=== PATIENT | female | born 1945 | race Caucasian/White ===

== ENCOUNTER → 2016-09-08 | Outpatient (CLI) | payer OTHER, MEDICARE | LOC: BMCIMAGING 10:38 | PROVIDERS: ATTEND Internal Medicine | DX: M85.80 Other specified disorders of bone density and structure, unspecified site (principal) ==

== ENCOUNTER → 2017-04-25 | Outpatient (CLI) | payer OTHER, MEDICARE | LOC: FIMAGING 11:42 | PROVIDERS: ATTEND Internal Medicine | DX: Z12.31 Encounter for screening mammogram for malignant neoplasm of breast (principal) | CPT/HCPCS: G0202 ==

== ENCOUNTER → 2018-05-22 | Outpatient (CLI) | payer OTHER, MEDICARE | LOC: FIMAGING 18:45 | PROVIDERS: ATTEND Registered Nurse | DX: R42 Dizziness and giddiness (principal); R53.1 Weakness ==

== ENCOUNTER 2018-05-23 10:11 | Observation (INO) | payer OTHER, MEDICARE ==
--- NOTE | 2018-05-23 10:35 | EDPHY ---
H & P Stated Complaint: fall/r arm weakness/had mri yesterday Time Seen by Provider: 05/23/18 10:26 HPI/ROS: CHIEF COMPLAINT: CVA HISTORY OF PRESENT ILLNESS: The patient is a 72-year-old female who had a CVA on Monday night 5 days ago. She states that she was cleaning the table when suddenly she had weakness in her right hand dropped the glass. She also felt vertiginous. Her helped her to bed. She fell out of the bed once and he was able to get back in and put on her pajamas. Her is a manufacturing executive and they thought that she was having a vestibular problem. No fever. Her symptoms were better by Monday morning but states that she felt slightly off. Her symptoms had resolved by Monday. On Monday she saw her primary care nurse practitioner who suspected a TIA and ordered an MRI. The MRI happened yesterday. This revealed a focal ischemic stroke in the left temporoparietal region. The patient is currently asymptomatic. Her primary Dr. Jones called her today and recommended she come to the ER for further workup and possibly admission. She has been taking aspirin daily since the event. She denies history of cardiac disease. No chest pain or shortness of breath. No slurred speech or facial symptoms. No leg symptoms during the event. Severity: Severe Modifying factors: Resolved REVIEW OF SYSTEMS: Constitutional: denies: chills, fever, recent illness, recent injury EENTM: denies: blurred vision, double vision, nose congestion Respiratory: denies: cough, shortness of breath Cardiac: denies: chest pain, irregular heart rate, lightheadedness, palpitations Gastrointestinal/Abdominal: denies: abdominal pain, diarrhea, nausea, vomiting, blood streaked stools Genitourinary: denies: dysuria, frequency, hematuria, pain Musculoskeletal: denies: joint pain, muscle pain Skin: denies: lesions, rash, jaundice, bruising Neurological: denies: headache, numbness, paresthesia, tingling, dizziness, weakness Hematologic/Lymphatic: denies: blood clots, easy bleeding, easy bruising Immunologic/allergic: denies: HIV/AIDS, transplant 10 systems reviewed and negative except as noted EXAM: GENERAL: Well-appearing, well-nourished and in no acute distress. HEAD: Atraumatic, normocephalic. EYES: Pupils equal round and reactive to light, extraocular movements intact, sclera anicteric, conjunctiva are normal. ENT: TMs normal, nares patent, oropharynx clear without exudates. Moist mucous membranes. NECK: Normal range of motion, supple without lymphadenopathy or JVD. LUNGS: Breath sounds clear to auscultation bilaterally and equal. No wheezes rales or rhonchi. HEART: Regular rate and rhythm without murmurs, rubs or gallops. ABDOMEN: Soft, nontender, normoactive bowel sounds. No guarding, no rebound. No masses appreciated. BACK: No CVA tenderness, no spinal tenderness, step-offs or deformities EXTREMITIES: Normal range of motion, no pitting or edema. No clubbing or cyanosis. NEUROLOGICAL: Cranial nerves II through XII grossly intact. Normal speech, normal gait. 5/5 strength, normal movement in all extremities, normal sensation , normal reflexes, NIH stroke score 0. PSYCH: Normal mood, normal affect. SKIN: Warm, dry, normal turgor, no visible rashes or lesions. Source: Patient, Family, RN/MD Exam Limitations: No limitations - Personal History Current Tetanus Diphtheria and Acellular Pertussis (TDAP): Yes - Medical/Surgical History Hx Asthma: Yes Hx Chronic Respiratory Disease: No Hx Diabetes: No Hx Cardiac Disease: No Hx Renal Disease: No Hx Cirrhosis: No Hx Alcoholism: No Hx HIV/AIDS: No Hx Splenectomy or Spleen Trauma: No Other PMH: parathyroidectomy. stroke. r knee surg eue surg septal surg - Family History Significant Family History: No pertinent family hx - Social History Smoking Status: Never smoked Alcohol Use: None Drug Use: None Constitutional: Initial Vital Signs Temperature (C) 36.4 C 05/23/18 10:17 Heart Rate 73 05/23/18 10:17 Respiratory Rate 16 05/23/18 10:17 Blood Pressure 164/88 H 05/23/18 10:17 O2 Sat (%) 93 05/23/18 10:17 O2 Delivery Mode Room Air Allergies/Adverse Reactions: Penicillins Allergy (Verified 05/23/18 10:15) Sulfa (Sulfonamide Antibiotics) Allergy (Verified 05/23/18 10:15) Home Medications: Medication Instructions Recorded Albuterol [Proventil Inhaler HFA 1 puffs IH Q6 PRN 05/23/18 (*)] Aspirin EC [Aspirin EC 81 mg (*)] 81 mg PO DAILY 05/23/18 Cetirizine [ZyrTEC 10 mg (*)] 10 mg PO DAILY 05/23/18 Cholecalciferol Vit D3 [Vitamin D3 2,000 units PO DAILY 05/23/18 (*)] Fluticasone Nasal [Flonase Nasal 1 sprays NASAL BID 05/23/18 [place] (RX)] Fluticasone/Salmeter 250/50Mcg 1 puffs IH BID 05/23/18 [Advair 250/50 (*)] Olopatadine 0.1% [Patanol 0.1% 1 drop EACHEYE BID PRN 05/23/18 [place] Drop (RX)] Medical Decision Making - Diagnostics EKG Interpretation: An EKG obtained and was read and documented in trace view. Please see trace view for full reading and report. Sinus rhythm, the PVC, no acute ischemic changes Imaging Results: Imaging Impressions Head CTA 05/23/18 11:45 Impression: 1. No acute vascular findings. 2. Degenerative change in the cervical spine, most prominent from C5 through C7. Stenoses are calculated using [place] Symptomatic Carotid Endarterectomy Trial (NASCET) criteria. Findings discussed with William Valentin 05/23/2018 at 1304 hours. Neck CTA 05/23/18 11:45 Impression: 1. No acute vascular findings. 2. Degenerative change in the cervical spine, most prominent from C5 through C7. Stenoses are calculated using [place] Symptomatic Carotid Endarterectomy Trial (NASCET) criteria. Findings discussed with William Valentin 05/23/2018 at 1304 hours. Imaging: Discussed imaging studies w/ government affairs director Radiologist ED Course/Re-evaluation: 11:45 a.m. I discussed the case Dr. Chi. He recommends the patient stay in the hospital because he suspects that this is a embolic source. 11:55 a.m. I spoke with Medicine service who will admit. Differential Diagnosis: Partial list of the Differential diagnosis considered include but were not limited to; CVA, TIA and although unlikely based on the history and physical exam, I also considered infection, trauma, dissection. - Data Points Laboratory Results: Laboratory Results 05/23/18 10:40 05/23/18 10:40 05/23/18 05/23/18 05/23/18 10:50 10:40 10:40 WBC RBC Hgb Hct MCV MCH MCHC RDW Plt Count MPV Neut % (Auto) Lymph % (Auto) Arthur % (Auto) Eos % (Auto) Baso % (Auto) Nucleat RBC Rel Count Absolute Neuts (auto) Absolute Lymphs (auto) Absolute Monos (auto) Absolute Eos (auto) Absolute Basos (auto) Absolute Nucleated RBC Immature Gran % Immature Gran # PT INR Sodium 141 mEq/L mEq/L (135-145) Potassium 4.2 mEq/L mEq/L (3.3-5.0) Chloride 105 mEq/L mEq/L (97-110) Carbon Dioxide 26 mEq/l mEq/l (22-31) Anion Gap 10 mEq/L mEq/L (6-14) BUN 21 mg/dL mg/dL (7-23) Creatinine 0.8 mg/dL mg/dL (0.6-1.0) Estimated GFR > 60 Glucose 100 mg/dL mg/dL (70-100) Calcium 9.7 mg/dL mg/dL (8.5-10.4) POC Troponin I 0.01 ng/mL ng/mL (0.00-0.08) Triglycerides 204 mg/dL H mg/dL (35-135) Cholesterol 226 mg/dL H mg/dL (140-220) Cholesterol Risk Factr 1.2 H (0.2-1.0) LDL Cholesterol, Calc 135 mg/dL H mg/dL (80-100) LDL Risk Factor 0.8 (0.2-1.0) VLDL Cholesterol 41 mg/dL H mg/dL (8-25) Non-HDL Cholesterol 176 mg/dL H mg/dL (90-129) HDL Cholesterol 50 mg/dL mg/dL (40-85) LDL/HDL Ratio 2.70 RATIO RATIO (1.00-3.22) Cholesterol/HDL Ratio 4.52 RATIO H RATIO (1.00-4.44) 05/23/18 05/23/18 10:40 10:40 WBC 7.52 10^3/uL 10^3/uL (3.80-9.50) RBC 4.89 10^6/uL 10^6/uL (4.18-5.33) Hgb 14.9 g/dL g/dL (12.6-16.3) Hct 42.9 % % (38.0-47.0) MCV 87.7 fL fL (81.5-99.8) MCH 30.5 pg pg (27.9-34.1) MCHC 34.7 g/dL g/dL (32.4-36.7) RDW 12.9 % % (11.5-15.2) Plt Count 238 10^3/uL 10^3/uL (150-400) MPV 10.2 fL fL (8.7-11.7) Neut % (Auto) 63.8 % % (39.3-74.2) Lymph % (Auto) 25.3 % % (15.0-45.0) Arthur % (Auto) 8.2 % % (4.5-13.0) Eos % (Auto) 1.6 % % (0.6-7.6) Baso % (Auto) 0.7 % % (0.3-1.7) Nucleat RBC Rel Count 0.0 % % (0.0-0.2) Absolute Neuts (auto) 4.80 10^3/uL 10^3/uL (1.70-6.50) Absolute Lymphs (auto) 1.90 10^3/uL 10^3/uL (1.00-3.00) Absolute Monos (auto) 0.62 10^3/uL 10^3/uL (0.30-0.80) Absolute Eos (auto) 0.12 10^3/uL 10^3/uL (0.03-0.40) Absolute Basos (auto) 0.05 10^3/uL 10^3/uL (0.02-0.10) Absolute Nucleated RBC 0.00 10^3/uL 10^3/uL (0-0.01) Immature Gran % 0.4 % % (0.0-1.1) Immature Gran # 0.03 10^3/uL 10^3/uL (0.00-0.10) PT 13.6 SEC SEC (12.0-15.0) INR 1.02 (0.83-1.16) Sodium Potassium Chloride Carbon Dioxide Anion Gap BUN Creatinine Estimated GFR Glucose Calcium POC Troponin I Triglycerides Cholesterol Cholesterol Risk Factr LDL Cholesterol, Calc LDL Risk Factor VLDL Cholesterol Non-HDL Cholesterol HDL Cholesterol LDL/HDL Ratio Cholesterol/HDL Ratio Medications Given: Atorvastatin Calcium (Lipitor) 40 mg PO DAILY FRANSISCA Stop: 11/19/18 12:14 Last Admin: 05/23/18 14:29 Dose: 40 mg Point of Care Test Results: Chemistry 05/23/18 10:50 POC Troponin I 0.01 ng/mL ng/mL (0.00-0.08) Departure - Departure Disposition: [facility] Inpatient Acute Clinical Impression: CVA (cerebral vascular accident) Qualifiers: CVA mechanism: unspecified Qualified Code(s): I63.9 - Cerebral infarction, unspecified Condition: Fair
--- NOTE | 2018-05-23 10:42 | CPEKG ---
Test Reason : OPEN Blood Pressure : / mmHG Vent. Rate : 082 BPM Atrial Rate : 083 BPM P-R Int : 129 ms QRS Dur : 114 ms QT Int : 385 ms P-R-T Axes : 012 -33 030 degrees QTc Int : 450 ms Sinus rhythm Ventricular premature complex Borderline IVCD with LAD Abnormal R-wave progression, early transition Confirmed by William Valentin ([id number]) on 05/23/2018 10:41:46 AM Referred By: Confirmed By:William Valentin
[2018-05-23 10:50] LABS: PLATELET COUNT 238 10^3/uL (150-400)
[2018-05-23 10:58] LABS: INR 1.02 (0.83-1.16); PROTIME(PATIENT) 13.6 SEC (12.0-15.0)
[2018-05-23] MEDS ORDERED: IOPAMIDOL (ISOVUE 370) 100 ML BTL IV ONE (12:00)
[2018-05-23] MEDS ORDERED: ONDANSETRON 4 MG/2 ML VIAL IVP PRN (12:05)
[2018-05-23] MEDS ORDERED: ONDANSETRON DISINTEGRATING 4 MG TAB PO PRN (12:05)
[2018-05-23] MEDS ORDERED: ACETAMINOPHEN 325 MG TAB PO PRN (12:05)
--- NOTE | 2018-05-23 13:38 | PDGENHP ---
History and Physical - Chief Complaint R Hand weakness - History of Present Illness Melany Loja is a 72 yo F with a PMHx of asthma, sleep apnea, hyperparathyroidism s/p parathyroidectomy who presents to [facility] for abnormal MRI findings consistent with ischemic stroke. Patient reports that on Monday she was cleaning and started to feel R hand weakness causing her to drop a glass. She also began to feel dizziness. She was placed in bed by her and fell out on her R arm, lower back. She fell asleep that night. She reports improvement in symptoms on Monday and resolution on Monday. She saw her PCP [facility] ICU on Monday where an MRI was ordered which was performed yesterday and showed a focal ischemic stroke in L temporoparietal region. Patient reports no speech changes, weakness, lightheadedness, dizziness, syncope, chest pain, SOB, d/c, n/ v, f/c, numbness/tingling, vision changes. History Information - Allergies/Home Medication List Allergies/Adverse Reactions: Penicillins Allergy (Verified 05/23/18 10:15) Sulfa (Sulfonamide Antibiotics) Allergy (Verified 05/23/18 10:15) Home Medications: Albuterol [Proventil Inhaler HFA (*)] 1 puffs IH Q6 PRN 05/23/18 [Last Taken Unknown] Aspirin EC [Aspirin EC 81 mg (*)] 81 mg PO DAILY 05/23/18 [Last Taken 05/23/18] Cetirizine [ZyrTEC 10 mg (*)] 10 mg PO DAILY 05/23/18 [Last Taken 05/20/18] Cholecalciferol Vit D3 [Vitamin D3 (*)] 2,000 units PO DAILY 05/23/18 [Last Taken Unknown] Fluticasone Nasal [Flonase Nasal [place] (RX)] 1 sprays NASAL BID 05/23/18 [Last Taken 05/23/18] Fluticasone/Salmeter 250/50Mcg [Advair 250/50 (*)] 1 puffs IH BID 05/23/18 [ Last Taken 05/23/18] Olopatadine 0.1% [Patanol 0.1% Opht Drop (RX)] 1 drop EACHEYE BID PRN 05/23/18 [ Last Taken Unknown] I have personally reviewed and updated: family history, medical history, social history, surgical history - Past Medical History asthma Additional medical history: Sleep apnea, hyperparathyroidism - Surgical History Additional surgical history: parathyroidectomy 20 years ago - Family History Positive for: non-pertinent - Social History Smoking Status: Never smoked Alcohol Use: None Drug Use: None Review of Systems Review of Systems: ROS: 10pt was reviewed & negative except for what was stated in HPI & below Physical Exam Physical Exam: Temp Pulse Resp BP Pulse Ox 36.4 C 80 16 137/92 H 93 05/23/18 10:17 05/23/18 12:43 05/23/18 12:43 05/23/18 12:43 05/23/18 12:43 Constitutional: no apparent distress Eyes: PERRL Ears, Nose, Mouth, Throat: moist mucous membranes Cardiovascular: regular rate and rhythym Respiratory: no respiratory distress, clear to auscultation Gastrointestinal: soft, non-tender abdomen Genitourinary: no bladder tenderness Skin: warm, normal color Musculoskeletal: full muscle strength Neurologic: AAOx3, sensation intact bilaterally, CN II-XII Intact, No weakness, No numbness, No facial droop Psychiatric: interacting appropriately Lab Data & Imaging Review 05/23/18 10:40 05/23/18 10:40 WBC 7.52 10^3/uL (3.80-9.50) 05/23/18 10:40 RBC 4.89 10^6/uL (4.18-5.33) 05/23/18 10:40 Hgb 14.9 g/dL (12.6-16.3) 05/23/18 10:40 Hct 42.9 % (38.0-47.0) 05/23/18 10:40 MCV 87.7 fL (81.5-99.8) 05/23/18 10:40 MCH 30.5 pg (27.9-34.1) 05/23/18 10:40 MCHC 34.7 g/dL (32.4-36.7) 05/23/18 10:40 RDW 12.9 % (11.5-15.2) 05/23/18 10:40 Plt Count 238 10^3/uL (150-400) 05/23/18 10:40 MPV 10.2 fL (8.7-11.7) 05/23/18 10:40 Neut % (Auto) 63.8 % (39.3-74.2) 05/23/18 10:40 Lymph % (Auto) 25.3 % (15.0-45.0) 05/23/18 10:40 [place] % (Auto) 8.2 % (4.5-13.0) 05/23/18 10:40 Eos % (Auto) 1.6 % (0.6-7.6) 05/23/18 10:40 Baso % (Auto) 0.7 % (0.3-1.7) 05/23/18 10:40 Nucleat RBC Rel Count 0.0 % (0.0-0.2) 05/23/18 10:40 Absolute Neuts (auto) 4.80 10^3/uL (1.70-6.50) 05/23/18 10:40 Absolute Lymphs (auto) 1.90 10^3/uL (1.00-3.00) 05/23/18 10:40 Absolute Monos (auto) 0.62 10^3/uL (0.30-0.80) 05/23/18 10:40 Absolute Eos (auto) 0.12 10^3/uL (0.03-0.40) 05/23/18 10:40 Absolute Basos (auto) 0.05 10^3/uL (0.02-0.10) 05/23/18 10:40 Absolute Nucleated RBC 0.00 10^3/uL (0-0.01) 05/23/18 10:40 Immature Gran % 0.4 % (0.0-1.1) 05/23/18 10:40 Immature Gran # 0.03 10^3/uL (0.00-0.10) 05/23/18 10:40 PT 13.6 SEC (12.0-15.0) 05/23/18 10:40 INR 1.02 (0.83-1.16) 05/23/18 10:40 Sodium 141 mEq/L (135-145) 05/23/18 10:40 Potassium 4.2 mEq/L (3.3-5.0) 05/23/18 10:40 Chloride 105 mEq/L (97-110) 05/23/18 10:40 Carbon Dioxide 26 mEq/l (22-31) 05/23/18 10:40 Anion Gap 10 mEq/L (6-14) 05/23/18 10:40 BUN 21 mg/dL (7-23) 05/23/18 10:40 Creatinine 0.8 mg/dL (0.6-1.0) 05/23/18 10:40 Estimated GFR > 60 05/23/18 10:40 Glucose 100 mg/dL (70-100) 05/23/18 10:40 Calcium 9.7 mg/dL (8.5-10.4) 05/23/18 10:40 POC Troponin I 0.01 ng/mL (0.00-0.08) 05/23/18 10:50 Triglycerides 204 mg/dL (35-135) H 05/23/18 10:40 Cholesterol 226 mg/dL (140-220) H 05/23/18 10:40 Cholesterol Risk Factr 1.2 (0.2-1.0) H 05/23/18 10:40 LDL Cholesterol, Calc 135 mg/dL (80-100) H 05/23/18 10:40 LDL Risk Factor 0.8 (0.2-1.0) 05/23/18 10:40 VLDL Cholesterol 41 mg/dL (8-25) H 05/23/18 10:40 Non-HDL Cholesterol 176 mg/dL (90-129) H 05/23/18 10:40 HDL Cholesterol 50 mg/dL (40-85) 05/23/18 10:40 LDL/HDL Ratio 2.70 RATIO (1.00-3.22) 05/23/18 10:40 Cholesterol/HDL Ratio 4.52 RATIO (1.00-4.44) H 05/23/18 10:40 Visualized and Interpreted EKG results: Yes EKG Interpretation: Positive for: normal sinsus rhythm, NS ST wave abnormalities Assessment & Plan Assessment: CVA (cerebral vascular accident) (Acute) - Symptoms began on Monday, resolved over the weekend - Saw PCP on Monday, s/p MRI yesterday which showed focal ischemic stroke L temporoparietal region - CTA Head neck with no acute abnormalities on admission - Patient asymptomatic with normal neurological exam - Neurology consulted on admission, believes this is likely an embolic source, recommends ASA 81 mg qd, Atorvastatin 40 mg qd, TTE with bubble study, 30 day monitor - Will start ASA 81 mg qd, Atorvastatin 40 mg qd - Will order TTE with bubble study - Monitor on telemetry overnight, d/c with 30 day cardiac monitoring Asthma - Continue Advair, PRN Albuterol Sleep Apnea - CPAP at night Hx of Hyperparathyroidism s/p Parathyroidectomy - Continue Vit D 2000 units qd FEN: Regular diet Code: DNR Dispo: Observation overnight, likely d/c in the AM
[2018-05-23] MEDS ORDERED: OLOPATADINE 0.1% 5 ML OPHT.BTL EACHEYE PRN (13:45)
[2018-05-23] MEDS ORDERED: ALBUTEROL 60 PUFFS/8 GM MDI IH PRN (13:45)
[2018-05-23] MEDS: ATORVASTATIN CALCIUM 40 MG TAB PO SCH (14:29)
--- NOTE | 2018-05-23 16:54 | ECHO ---
[email or web address] [address] Main: [phone] Fax: [email or web address] Echocardiogram Name: VINCENT JACKSON MR#: [id number] Study Date: 05/23/2018 Study Time: 01:54 PM Date of : 1945 Age: 72 year(s) Height: 167.6 cm (66 in.) Weight: 86.18 kg (190 lb.) BSA: 1.96 m2 Gender: Female Examination: Echo with Agitated Saline Indication: Cerebrovascular: prior CVA Image Quality: Contrast: Requested by: Ambrose Oswald BP: 160 mmHg/96 mmHg Heart Rate: Rhythm: Indication: Cerebrovascular: prior CVA Procedure Staff Die Sizer: Clara Candelario RDCS Reading Physician: Frank Adams MD Requesting Provider: Conclusions: Normal size left ventricle. Borderline concentric LV hypertrophy. EF is 59 %. The left atrium is mildly dilated. An agitated saline study was performed and was negative for intracardiac shunting. Moderate mitral annular calcification. Mild mitral valve leaflet calcification is present. Mild mitral valve regurgitation is present. The aortic valve is tri-leaflet. Mild aortic valve regurgitation is present. No aortic valve stenosis is present. Normal size ascending aorta measuring 3.3 cm. No old studies for comparison. Measurements: Chambers Valvular Assessment AV/MV Valvular Assessment TV/PV Normal Normal Normal Name Value Range Name Value Range Name Value Range Ao Calista (2D): 3.1 cm (1.4 cm-2.6 AV Vmax: 1.25 m/s (1 m/s-1.7 PV Vmax: 0.83 m/s (0.6 m/s-0.9 cm) m/s) m/s) IVSd (2D): 1.2 cm (0.6 cm-1.1 AV maxP mmHg ( - ) PV PGmax: 3 mmHg ( - ) cm) AV meanP mmHg ( - ) LVDd (2D): 5.0 cm (3.9 cm-5.3 BRETT (VTI): 2.6 cm ( - ) cm) MV E Vmax: 0.47 m/s ( - ) LVDs (2D): 3.8 cm (2.1 cm-4 MV A Vmax: 1.00 m/s ( - ) cm) MV E/A: 0.47 ( - ) LVPWd (2D): 1.1 cm ( - ) MV PHT: 0.073 s ( - ) LVOTd 2.1 cm 2.1 cm mm MVA (PHT): 3.0 s ( - ) LVEF (BP): 59 % (>=55 %) Patient: VINCENT JACKSON Study Date: 05/23/2018 Page 1 of 2 01:54 PM RVDd(2D): 4.0 cm (1.9 cm-3.8 cmmm) Continued Measurements: Chambers Valvular Assessment AV/MV Name Value Name Value LADs: 4.3 cm MV DecTime: 211 m/s LADs Lon.8 cm MV E' Septal: 0.04 m/s LA Area: 20.8 cm2 MV E/E' Septal: 10.70 LA Volume: 78 ml MV E/E' Lateral: 7.60 LA Volume Index: 39.8 ml/m2 RA Area: 16.7 cm2 Additional Vessels Name Value Ao Ascendin.3 cm Inferior Vena Cava: 1.7 cm Findings: Left Ventricle: Normal size left ventricle. Borderline concentric LV hypertrophy. Normal global systolic LV function. EF is 59 %. No regional wall motion abnormality. Unable to assess diastolic dysfunction. Right Ventricle: Normal size right ventricle. Normal RV function. Left Atrium: The left atrium is mildly dilated. An agitated saline study was performed and was negative for intracardiac shunting. Right Atrium: The right atrium is normal in size. Mitral Valve: Moderate mitral annular calcification. Mild mitral valve leaflet calcification is present. Mild mitral valve regurgitation is present. No mitral stenosis is present. Aortic Valve: The aortic valve is tri-leaflet. Mild aortic valve regurgitation is present. No aortic valve stenosis is present. Tricuspid Valve: The tricuspid valve is normal in appearance and function. Trivial tricuspid valve regurgitation. Pulmonic Valve: The pulmonic valve is normal in appearance and function. There is no pulmonic regurgitation seen. Aorta: The aorta is normal. Normal size aortic root measuring 3.1 cm. Normal size ascending aorta measuring 3.3 cm. IVC: The IVC is normal sized. Pericardium: No pericardial effusion. No pleural effusion. (No Signature Object) Patient: VINCENT JACKSON Study Date: 05/23/2018 Page 2 of 2 01:54 PM [id number]
[2018-05-23] MEDS: FLUTICASONE/SALMETER 250/50MCG DISKUS IH SCH (20:56)
[2018-05-23] MEDS: FLUTICASONE NASAL 120 SPRAYS/16 GM MDI EACHNARE SCH (20:57)
[2018-05-24] MEDS ORDERED: guaiFENesin 600 MG TAB.ER PO PRN (04:20)
[2018-05-24] MEDS ORDERED: ASPIRIN 81 MG CHEWABLE TAB PO SCH (09:00)
[2018-05-24] MEDS ORDERED: CETIRIZINE 10 MG TAB PO SCH (09:00)
[2018-05-24] MEDS ORDERED: ENOXAPARIN 40 MG/0.4 ML SYR SC SCH (09:00)
[2018-05-24] MEDS ORDERED: CHOLECALCIFEROL VIT D3 1,000 UNITS TAB PO SCH (09:00)
[2018-05-24] MEDS: FLUTICASONE/SALMETER 250/50MCG DISKUS IH SCH (09:27)
[2018-05-24] MEDS: ATORVASTATIN CALCIUM 40 MG TAB PO SCH (09:50)
[2018-05-24] MEDS: FLUTICASONE NASAL 120 SPRAYS/16 GM MDI EACHNARE SCH (09:50)
--- NOTE | 2018-05-24 11:00 | GCON ---
NEUROLOGY CONSULT REFERRING PHYSICIAN: Ambrose Oswald DO REASON FOR CONSULTATION: Stroke. HISTORY OF PRESENT ILLNESS: The patient is a very pleasant 72-year-old lady with a past medical history that includes sleep apnea and parathyroid disorder. She does not have any cardiac history or palpitations. She had not been taking a daily aspirin for weeks or months when this event occurred. On Monday evening, she felt some right upper extremity weakness and dropped an object and felt generally unwell. Her thought it could be a vestibular issue. She let the symptoms go and ultimately contacted her PCP who got an MRI on Monday, which showed an acute peripheral infarct in the left MCA distribution. Her symptoms had been resolving by then. Her PCP, Dr. Jones, then called me yesterday morning about getting the patient into the clinic. I spoke with her and recommended emergency department referral as the MRI was consistent with acute stroke by workup. The patient was agreeable and came to the emergency department and was admitted. She had complete resolution of her right-sided weakness, fortunately. CT of the head and neck did not show any acute findings or significant carotid disease. Echocardiogram showed some mild left atrial dilation without any shunting. She has not had atrial fibrillation that I am aware of while on telemetry here. REVIEW OF SYSTEMS: Ten-point review of systems done and only pertinent to the HPI. For past medical history, social history, family history, home medications, and allergies, see Dr. Oswald's H and P. PHYSICAL EXAM: VITAL SIGNS: Blood pressure 150s over 90s, temperature 36.6, respirations 16. GENERAL: In no acute distress, very pleasant. NEUROLOGIC: Higher mental function: Awake and alert. Names 5/5. Follows commands 5/5. Repeats 5/5. No aphasia. Cranial nerve exam: Normal 2-7 and 12. Motor: Normal strength and tone throughout. There is no weakness on exam. Sensory: Normal to light touch throughout. IMPRESSION AND PLAN: 1. Cryptogenic Stroke. The topography of the patient's stroke is in a peripheral/cortical region suggestive of an embolic source. She has no significant carotid disease or acute vascular findings on angiography of the head and neck. Going forward, I recommend she be on aspirin 325 mg daily coated with meals and statin therapy as she does have dyslipidemia. I recommend she have a 30-day event monitor initially for screening for paroxysmal atrial fibrillation. If this is negative , then I would recommend going forward with an implantable monitoring analyst for extended screening for paroxysmal atrial fibrillation. This is a cryptogenic stroke. I counseled her at length. She should have outpatient followup with Cardiology regarding the above screening for paroxysmal atrial fibrillation. She will follow up with me in 8 weeks as an outpatient to review all the above and the ongoing stroke workup. She is agreeable. It was very nice to meet the patient today, and we appreciate consultation. Please do not hesitate to call if there are any questions or changes in neurologic status. Certainly, based on the hospitalist' s evaluation, she certainly could be considered for discharge home later today after heart monitoring details have been arranged. Forty-five total minutes spent on floor time today reviewing outpatient records , imaging, MRI imaging, angiography, direct counseling of the patient, and coordination of care. /[id number]/[id number] MTDD
[2018-05-24 11:42] VITALS: BP 155/83
--- NOTE | 2018-05-24 12:21 | HOSPPROG ---
Hospitalist Progress Note Assessment/Plan: * CVA, embolic, cryptogenic - Symptoms began on Monday, resolved over the weekend - Saw PCP on Monday, s/p MRI which showed focal ischemic stroke L temporoparietal region - CTA Head neck with no acute abnormalities on admission - neurology recommending ASA 325 mg and statin - TTE shows no intracardiac shunting - Will start ASA 81 mg qd, Atorvastatin 40 mg qd - Tele shows sinus w some PVC's,no afib -spoke w cardiology, 30 day event monitor being sent to her, also, she has a f/ u appt w them *Asthma - Continue Advair, PRN Albuterol *Sleep Apnea - CPAP at night *Hx of Hyperparathyroidism s/p Parathyroidectomy - Continue Vit D 2000 units qd *plan: dc home w close f/u w neurology and cardiology, reviewed w her if she has any s/sx of stroke; call 911 or return to the ER Subjective: Melany feels fine, has no complaints. Objective: Vital Signs Temp Pulse Resp BP Pulse Ox 36.8 C 82 19 155/83 H 92 05/24/18 11:41 05/24/18 11:41 05/24/18 11:41 05/24/18 11:41 05/24/18 11:41 05/23/18 05/24/18 05/25/18 05:59 05:59 05:59 Intake Total 1300 750 Output Total 350 Balance 1300 400 PT 13.6 SEC (12.0-15.0) 05/23/18 10:40 INR 1.02 (0.83-1.16) 05/23/18 10:40 - Physical Exam Constitutional: no apparent distress, appears nourished, not in pain Eyes: PERRL Ears, Nose, Mouth, Throat: hearing normal Cardiovascular: regular rate and rhythym Respiratory: no respiratory distress Gastrointestinal: normoactive bowel sounds Skin: warm Musculoskeletal: full muscle strength Neurologic: AAOx3, CN II-XII Intact, No weakness, No pronator drift, No facial droop Psychiatric: interacting appropriately, not anxious, not encephalopathic ICD10 Worksheet Patient Problems: Problems Problem Status Onset CVA (cerebral vascular accident) Acute
--- NOTE | 2018-05-24 13:51 | ASMTCMCOM ---
CM Note CM Note Notes: Pt had stroke Monday, went to PCP Monday and was recommended to come to hospital. Pt symptoms now resolved, neurology consulting. Pt resides with . PT/OT/INTERMODAL CUSTOMER SERVICE clear pt for home. Pt to have tele monitor overnight, likely d/c tomorrow. No CM d/c needs identified. CM available for changes/needs. Date Signed: 05/24/2018 01:50 PM Electronically Signed By:KENDY Garzon
--- NOTE | 2018-05-24 19:39 | GDS ---
DISCHARGE DIAGNOSES: 1. Embolic cerebrovascular accident, cryptogenic. 2. Asthma. 3. Sleep apnea. 4. History of hyperparathyroidism status post parathyroidectomy. CONSULTATION: Dr. Mina Chi. Briefly, this is a 72-year-old woman who noted on Monday evening she felt some right upper extremity weakness and dropped an object while holding it in her hand. Her thought she had a vestibular problem. She followed up with her PCP to get further evaluation. Her PCP got an MRI on Monday, which showed an acute peripheral infarct in the left MCA distributions. She came to the emergency room and was admitted. She had complete resolution of her right-sided weakness. She had a CT of her head and neck, which did not show any acute findings or significant carotid disease. An echocardiogram showed some mild left atrial dilation without any shunting. I reviewed her hospital monitor. She has been in sinus rhythm with frequent PVCs. She will be discharged home and further follow up with Neurology as well as Cardiology. HOSPITAL COURSE: 1. Acute embolic stroke, cryptogenic. She will be on aspirin 325 mg daily as well as statin. Her LDL is elevated. I spoke with Cardiology. She will get a 30 day event monitor sent to her. She also has a followup appointment. She will also follow up with Dr. Mina Chi. 2. Asthma. Continue Advair. She had no signs or symptoms of any exacerbation. 3. Sleep apnea. She wears CPAP at night. 4. History of hyperparathyroidism status post parathyroidectomy. She is on vitamin D. DISCHARGE CONDITION: Stable. Blood pressure is 155/83, heart rate of 82, respiratory rate 19, O2 sats on room air 92%. Temperature 36.8 Celsius. MEDICATIONS AT DISCHARGE: Please see the EMR. DISCHARGE INSTRUCTIONS: 1. To take aspirin 325 mg instead of the 81 mg. 2. To take a statin every day. If she develops any muscle aches or pain to see her doctor right away. 3. The Holter monitor will be sent to her in 5 business days. If this is not there, to call [facility] [facility] [employer]. 4. She has an appointment with Dr. Deejay Andrade on July 03 at 9 a.m. 5. Follow up with Dr. Chi in 6 weeks. 6. If Holter monitor does not show atrial fibrillation, the recommendation is for her to get a link monitor. /[id number]/MODL MTDD
== END 2018-05-24 15:08 | disposition home or self-care (01) ==
LOC: F3N 13:27
PROVIDERS: ADMIT Internal Medicine; ATTEND Internal Medicine
DX: I63.9 Cerebral infarction, unspecified (principal); J45.909 Unspecified asthma, uncomplicated; G47.33 Obstructive sleep apnea (adult) (pediatric); E89.2 Postprocedural hypoparathyroidism
CPT/HCPCS: 70496; 70498; 92523; 93005; 93306; 96372; 97116; 97161; 97165; 99285; G0378; G8978; G8979; G8980; G8987; G8988; G8989; G9165; G9166; G9167; J1650; Q9967; 84484-PO

== ENCOUNTER → 2018-07-20 | Outpatient (CLI) | payer OTHER, MEDICARE | LOC: FIMAGING 11:04 | PROVIDERS: ATTEND Family Medicine | DX: Z12.31 Encounter for screening mammogram for malignant neoplasm of breast (principal) ==

== ENCOUNTER → 2018-08-27 | Day surgery (SDC) | payer OTHER, MEDICARE ==
[~2018-08-27] MED LIST: LIDOCAINE 1% 300 MG/30 ML SDV ONE; LIDOCAINE 1% 300 MG/30 ML SDV SC ONE
--- NOTE | 2018-08-27 09:47 | PDGENHP ---
History & Physical Chief Complaint: cryptogenic stroke. Needs long term care administrator ambulatory cardiac monitoring History of Present Illness: Please see my office note dated 07/19. Pertinent Past, Social, Family History: reviewed Cardiorespiratory Assessment: stable. no sedation planned.
--- NOTE | 2018-08-27 12:52 | CPIP ---
[f rep st] INVASIVE CARDIAC PROCEDURE DATE OF PROCEDURE: 08/27/2018 INDICATIONS: Cryptogenic stroke. Need for long-term ambulatory cardiac monitoring. COMPLICATIONS: None. DESCRIPTION OF PROCEDURE: Informed consent was obtained. The patient was prepped and draped in ster ile fashion. 1% lidocaine was used for local anesthesia over the left parasternal region. Using sta ndard technique, a Medtronic LINQ device was inserted, and the incision was closed with 2 adelaida. S terile dressing applied. CONCLUSIONS: Successful Medtronic LINQ insertion. Serial number [id number]. Interrogation and R-wa ve voltage are pending. Follow up in our office in 1 week for staple removal. Patient currently in stable condition. /[id number]/MODL
== END | disposition home or self-care (01) ==
LOC: FCATH 09:07
PROVIDERS: ATTEND Internal Medicine Cardiovascular Disease
PROC: 0JH602Z Insertion of Monitoring Device into Chest Subcutaneous Tissue and Fascia, Open Approach (ICD-10-PCS; principal; 2018-08-27)
DX: Z86.73 Personal history of transient ischemic attack (TIA), and cerebral infarction without residual deficits (principal); R06.02 Shortness of breath; Q21.1 Atrial septal defect; I34.1 Nonrheumatic mitral (valve) prolapse; I34.0 Nonrheumatic mitral (valve) insufficiency; E78.5 Hyperlipidemia, unspecified; I10 Essential (primary) hypertension; G47.33 Obstructive sleep apnea (adult) (pediatric); J45.909 Unspecified asthma, uncomplicated; G43.909 Migraine, unspecified, not intractable, without status migrainosus; Z79.82 Long term (current) use of aspirin; Z88.0 Allergy status to penicillin; Z88.2 Allergy status to sulfonamides
CPT/HCPCS: C1764

== ENCOUNTER → 2018-09-11 | Outpatient (CLI) | payer OTHER, MEDICARE | LOC: BHFA 09:00 | PROVIDERS: ATTEND Internal Medicine Cardiovascular Disease | DX: R06.02 Shortness of breath (principal); I63.9 Cerebral infarction, unspecified; I34.0 Nonrheumatic mitral (valve) insufficiency; I49.3 Ventricular premature depolarization | CPT/HCPCS: 78452; 93017; A9500; J2785 ==

== ENCOUNTER → 2018-10-24 | Outpatient (CLI) | payer OTHER, MEDICARE | LOC: BHFA 11:15 | PROVIDERS: ATTEND Physician Assistant Medical | DX: I48.91 Unspecified atrial fibrillation (principal); I63.9 Cerebral infarction, unspecified; I10 Essential (primary) hypertension; E78.5 Hyperlipidemia, unspecified ==

== ENCOUNTER → 2018-11-08 | Outpatient (CLI) | payer OTHER, MEDICARE | LOC: FCPNEURO 20:00 | PROVIDERS: ATTEND Psychiatry & Neurology Sleep Medicine | DX: G47.33 Obstructive sleep apnea (adult) (pediatric) (principal) ==